=== PATIENT | male | born 1985 | race Caucasian/White ===

== ENCOUNTER 2019-10-01 14:05 | Emergency (ER) | payer BC, MEDICAID, SELFPAY ==
[2019-10-01 14:49] VITALS: BP 108/65; PULSE 85; RESP 19; TEMP 36.8; O2SAT 100; BMI 35.2
--- NOTE | 2019-10-01 15:13 | HMH.EDUTC ---
[facility] [place] Clinical Impression: Encounter for laboratory testing for COVID-19 virus URI (upper respiratory infection) Qualifiers: URI type: unspecified URI Qualified Code(s): J06.9 - Acute upper respiratory infection, unspecified Disposition: Home, Self-Care Condition on Discharge: Good Instructions: Sore Throat, Preventing the Spread of Coronavirus Discharge Instructions, Azithromycin Additional Instructions: *Monitor Temp, Over the counter Motrin or Tylenol as directed/as needed Tylenol every 4 hours and Motrin every 6 hours (as long as your family doctor has told you that you can take it) for fever or pain. and straight to ER if unable to lower temp less than 101.0 after medication given *Warm salt water gargles may help to soothe the throat *Throat Lozenges *Warm fluids like tea with honey may help to soothe the throat *Sleep elevated *Humidifier/Vaporizer You was given handout with instructions for Self Quarantine while you await your COVID19 test results and Self Isolation if the test results are positive Make sure to follow them Closely to help prevent the spread of COVID Call back to the [facility] on Thursday to see if your COVID test is back and the results No work until you have a negative COVID test Follow up IMMEDIATELY for new or worsening symptoms or no Noticeable improvement over the next 48-72 hours. 911 for difficulty breathing or swallowing Prescriptions: Albuterol Sulfate [Proventil-HFA 90mcg/puff Inh] 1 - 2 puffs IH Q4HP PRN #1 inh PRN Reason: Shortness Of Breath Prescription Printed Azithromycin [Z-Shadi 250mg Tab] 250 mg PO DIRECTED #6 tab Prescription Printed Referrals: Viry Beltrán [Primary Care Provider] - As needed Forms: Work/School Release Medical Decision Making - Bennie Inquiry Pt receiving controlled substance: No Bennie was queried for this patient: No Vital Signs: 10/01/19 14:49 Temperature 98.2 F Temperature Source Oral Pulse Rate [Right Brachial] 85 Respiratory Rate 19 Blood Pressure [Right Arm] 108/65 L Blood Pressure Mean [Right Arm] 79 Blood Pressure Source [Right Arm] Automatic Cuff Blood Pressure Position [Right Arm] Sitting 02 Sat by Pulse Oximetry 100 Oxygen Delivery Method Room Air Orders (Tests/Meds): ORDERS Category Date Time Status SARS-CoV-2, [place] ([place]) Stat Lab 10/01/19 14:45 [place] [facility] [place] - General Stated complaint: WANTS COVID TEST Time Seen by Provider: 10/01/19 15:13 Mode of Arrival: Ambulatory Source of Information: Patient Limitations: No Limitations Description of Symptoms (Recalled from Triage Doc. by RN): covid-19 testing, dizziness, chest congestion, exposure to covid positive person HEENT Symptoms (Recalled from RN notes): Yes Resp Symptoms (Recalled from RN notes): Yes Skin Symptoms (Recalled from RN notes): No MS Symptoms (Recalled from RN notes): No Functional Status (Recalled from RN notes): none - History of Present Illness Provider Complaint: Patient states that he was around someone that was positive for COVID 3 times States that this week he has been feeling tired and achy all over, having cough, sinus pain and pressure, sore throat and nasal congestion and over all not feeling well States that had a couple eppisodes of vomiting and nausea. States that he wanted to get checked for COVID - Related Data Home Medications Medication Instructions Recorded Confirmed Metoprolol Tartrate [Lopressor 25 mg PO DAILY 10/01/19 10/01/19 25mg tablet] Omeprazole [Omeprazole 20mg 100 mg PO DAILY 10/01/19 10/01/19 Capsule] lamoTRIgine [Lamotrigine] 100 mg PO DAILY 10/01/19 10/01/19 lisinopriL [Lisinopril 40mg Tablet] 40 mg PO DAILY 10/01/19 10/01/19 Previous Rx's Medication Instructions Recorded Albuterol Sulfate [Proventil-HFA 1 - 2 puffs IH Q4HP PRN #1 inh 10/01/19 90mcg/puff Inh] Azithromycin [Z-Shadi 250mg Tab] 250 mg PO DIRECTED #6 tab 10/01/19 Allergies Allergy/AdvReac Type
[2019-10-01 15:37] VITALS: BP 108/65; PULSE 85; RESP 19; TEMP 36.8; O2SAT 100
[2019-10-02 16:39] LABS: Covid-19 Nasal PCR Sendout UK Not Detected
== END 2019-10-01 15:37 | disposition home or self-care (01) ==
PROVIDERS: Emergency Provider Nurse Practitioner; PCP Family Medicine
DX: Z20.828 Contact with and (suspected) exposure to other viral communicable diseases (principal); R42 Dizziness and giddiness; R05 Cough; F17.210 Nicotine dependence, cigarettes, uncomplicated
CPT/HCPCS: 96372; 99202; U0003

== ENCOUNTER → 2022-02-25 10:00 | Outpatient (CLI) | payer BC, SELFPAY ==
[2022-02-25 14:26] LABS: Basophils % 0.6 % (0.1-2.0); Eosinophils # 0.1 K/mm3 (0.0-0.4); Eosinophils % 1.2 % (0.1-12.0); Hematocrit 44.2 % (42.0-52.0); Hemoglobin 14.9 g/dL (14.1-18.0); Lymphocytes # 1.1 K/mm3 (0.7-4.5); Lymphocytes % 20.5 % (10-50); Mean Corpuscular HGB Conc 33.7 g/dL (31.8-35.4); Mean Platelet Volume 10.1 fl (7.4-10.4); Monocytes # 0.3 K/mm3 (0.1-1.0); Monocytes % 5.4 % (1.7-9.3); Neutrophils # 3.8 K/mm3 (1.8-7.8); Neutrophils % 72.3 % (37.0-80.0); Platelet Count 208 K/mm3 (142-424); Red Cell Distribution Width 14.1 % (11.5-17.5); White Blood Count 5.2 K/mm3 (4.8-10.8)
[2022-02-25 14:30] LABS: Alanine Aminotransferase 22 U/L (12-78); Albumin Level 4.4 g/dl (3.5-5.0); Albumin/Globulin Ratio 1.8 (1.1-1.8); Alkaline Phosphatase 142 U/L (38-126); Anion Gap 13.4 mEq/L (5-15); Aspartate Amino Transferase 23 U/L (17-59); Bilirubin,Total 0.3 mg/dl (0.2-1.3); Blood Urea Nitrogen 14 mg/dl (9-20); Calcium 9.4 mg/dl (8.4-10.2); Carbon Dioxide 27 mmol/L (22.0-30.0); Chloride 106 mmol/L (98-107); Chol/HDL Ratio 7.7 (1-3.5); Cholesterol 184 mg/dl (140-200); Estimated Glomerular Filt Rate 95 ml/min (>60); GFR (African American) 116 ML/MIN (>60); Globulin 2.4 g/dL (1.3-3.2); Glucose 109 mg/dl (74-100); HDL Cholesterol 24 mg/dl (40-60); Potassium 4.4 mmoL/L (3.5-5.1); Sodium 142 mmol/L (136-145); Total Protein,Serum 6.8 g/dl (6.3-8.2); Triglycerides 375 mg/dl (30-150); VLDL Cholesterol 75 mg/dL (0-40)
[2022-02-25 14:41] LABS: Direct LDL Cholesterol 95.36 mg/dL (100-129)
[2022-02-25 15:01] LABS: 25-OH Vitamin D, Total 36.2 ng/mL (30-100); Thyroid Stimulating Hormone 0.63 uIU/mL (0.465-4.68)
== END ==
PROVIDERS: PCP Emergency Medicine; Visit Provider Emergency Medicine
DX: I10 Essential (primary) hypertension (principal); E66.9 Obesity, unspecified; Z68.41 Body mass index [BMI] 40.0-44.9, adult; Z72.0 Tobacco use
CPT/HCPCS: 80053; 80061; 82306; 84439; 84443; 85025

== ENCOUNTER → 2022-03-06 10:45 | Outpatient (CLI) | payer BC, SELFPAY ==
--- NOTE | 2022-03-06 10:50 | CA_ITS ---
FINAL REPORT TECHNIQUE: Grayscale, color Doppler and duplex Doppler ultrasound of the kidneys, aorta and renal arteries was performed. Multiple velocities were measured. CLINICAL HISTORY: HTN,SMOKER FINDINGS: Aorta velocity: 179 cm/sec Right kidney: 11.2 cm. No evidence of hydronephrosis or mass. Right intrarenal RI: .56 Right renal artery velocity: 184 cm/sec. Right RAR (Renal artery-Aortic Ratio): 1.03 Left Kidney: 11.9 cm. No evidence of hydronephrosis or mass. Left intrarenal RI: .61 Left renal artery velocity: 165 cm/sec. Left RAR (Renal Artery-Aortic Ratio): 0.92 IMPRESSION: There is less than 60% renal artery stenosis on the right. There is no evidence of stenosis on the left. CT angiogram or postcontrast MR angiogram would be more sensitive for evaluation of possible renal artery stenosis. Reviewed, Interpreted and Dictated by Khurram Crowe III, MD Transcribed by Marisela Parr Authenticated and [facility]
== END ==
PROVIDERS: PCP Emergency Medicine; Visit Provider Emergency Medicine
DX: I10 Essential (primary) hypertension (principal)
CPT/HCPCS: 93976

== ENCOUNTER → 2022-03-14 10:25 | Outpatient (CLI) | payer BC, SELFPAY ==
[2022-03-14 12:16] LABS: Anion Gap 15.2 mEq/L (5-15); Blood Urea Nitrogen 30 mg/dl (9-20); Calcium 9.1 mg/dl (8.4-10.2); Carbon Dioxide 24 mmol/L (22.0-30.0); Chloride 108 mmol/L (98-107); Chol/HDL Ratio 9.2 (1-3.5); Cholesterol 229 mg/dl (140-200); Estimated Glomerular Filt Rate 85 ml/min (>60); GFR (African American) 102 ML/MIN (>60); Glucose 106 mg/dl (74-100); HDL Cholesterol 25 mg/dl (40-60); Potassium 4.2 mmoL/L (3.5-5.1); Sodium 143 mmol/L (136-145); Triglycerides 342 mg/dl (30-150); VLDL Cholesterol 68 mg/dL (0-40)
[2022-03-14 12:22] LABS: Hemoglobin A1C 4.9 % (4.0-6.0)
== END ==
PROVIDERS: PCP Emergency Medicine; Visit Provider Emergency Medicine
DX: E78.2 Mixed hyperlipidemia (principal); R73.09 Other abnormal glucose; D72.824 Basophilia; R94.4 Abnormal results of kidney function studies
CPT/HCPCS: 36415; 80048; 80061; 83036

== ENCOUNTER → 2022-03-26 13:20 | Outpatient (CLI) | payer SELFPAY ==
--- NOTE | 2022-03-26 13:21 | CT_ITS ---
FINAL REPORT TECHNIQUE: Thin section axial images were obtained through the heart and coronary arteries per CT coronary calcium score protocol. This study was performed with techniques to keep radiation doses as low as reasonably achievable (ALARA). Individualized dose reduction techniques using automated exposure control or adjustment of mA and/or kV according to the patient's size were employed. CLINICAL HISTORY: eval for CAD, htn, family hx heart disease. FINDINGS: On the axial images, no calcification is identified. This gives a coronary artery calcium score of 0 based on the Agatston scale. This coronary calcium score places the patient within the 0 percentile based on age and gender. The heart is normal in size. There is no pleural or pericardial effusion. Limited evaluation of the lungs reveal a noncalcified nodule in the inferior right lung measuring 11 mm. Finding is best seen on image 15. IMPRESSION: Coronary artery calcium score of 0 places patient in the 0 percentile based on age and gender. Noncalcified nodule as above, given the patient's age this is likely a noncalcified granuloma. Reviewed, Interpreted and Dictated by Malorie Villarreal MD Transcribed by Marisela Parr Authenticated and [facility]
== END ==
PROVIDERS: PCP Emergency Medicine; Visit Provider Internal Medicine Cardiovascular Disease
DX: I70.1 Atherosclerosis of renal artery (principal); R93.429 Abnormal radiologic findings on diagnostic imaging of unspecified kidney; I10 Essential (primary) hypertension; R53.83 Other fatigue; Z72.0 Tobacco use; Z13.6 Encounter for screening for cardiovascular disorders
CPT/HCPCS: 75571

== ENCOUNTER → 2022-03-28 11:33 | Outpatient (CLI) | payer BC, SELFPAY | PROVIDERS: PCP Emergency Medicine; Visit Provider Internal Medicine Cardiovascular Disease | DX: R06.83 Snoring (principal); G47.33 Obstructive sleep apnea (adult) (pediatric); R53.83 Other fatigue; R40.0 Somnolence | CPT/HCPCS: G0399 ==

== ENCOUNTER → 2022-04-07 13:14 | Outpatient (CLI) | payer BC, SELFPAY ==
--- NOTE | 2022-04-07 13:14 | CA_ITS ---
APPROVED REPORT EXAM: Comprehensive 2D, Doppler, and color-flow Echocardiogram Automatic [employer] Machine Mechanic: ANTONIO Medley, RVS Ht: 5 ft 7 in Wt: 268lbs BSA: 2.29 BP: 136/78 mmHg Indications: HTN, Abn EKG 2D Dimensions Aortic Root 3.26 cm Left Atrium 3.66 cm LVOT 2.17 cm (M/F) 1.5-2.5 M-Mode Dimensions RVDd 2.69 cm (0.9-2.6) LA Diam 4.28 cm (1.9-4.0) LVDd 5.39 cm (3.5-5.7) Ao Diam 3.47 cm (2.0-3.7) LVDs 3.38 cm (3.5-5.7) IVSd 1.09 cm (0.6-1.1) PWd 1.04 cm (0.6-1.1) EF (Teich) 66.70% EPSs 0.36 cm FS 37.30% EDV (Teich) 140.70 mL TAPSE 1.84 (<1.7) ESV (Teich) 46.80 mL LV Diastology E Decel Time 217.00 (160-240 msec) E/A Ratio 1.66 MED E' 7.40 (< 7 cm/sec) MED A' 10.30 cm/s E'/MED E' Ratio 12.31 (>14) LAT E' 14.50 (<10 cm/sec) LAT A' 11.80 cm/s E/LAT E' Ratio 6.28 (>14) Aortic Valve LVOT Max 96.00 (70-110 cm/s) LVOT VTI 20.86 cm AoV Peak Lloyd. 131.00 (50-130 cm/s) AO Peak GR. 6.90 mmHg AO Mean GR. 3.40 (<5 mmHg) AO VTI 26.74 (18-25 cm) TANIA (VTI) 2.89 (2.5-4.5 cm2) Mitral Valve MV A Velocity 55.00 (40-130 cm/s) E/A Ratio 1.66 MV Decel. Time 217.00 (160-240 ms) MV PHT 43.00 ms Pulmonary Valve PV Peak Velocity 95.00 (50-150 cm/s) Left Ventricle Left atrium is normal size, left ventricle is normal size, estimated ejection fraction 55% with no regional wall motion abnormality, diastolic parameters are within normal range. Right Ventricle Right atrium and right ventricle are normal size and contractility. Aortic Valve Aortic valve is grossly normal there is no aortic stenosis or aortic insufficiency. Mitral Valve Mitral valve is grossly normal, there is trace mitral regurgitation. Tricuspid Valve Tricuspid valve grossly normal, there is trace tricuspid regurgitation, tricuspid regurgitation jet velocity is inadequate for calculation of the right ventricular systolic pressure. Pulmonic Valve Pulmonic valve is poorly visualized. Great Vessels Aortic root is normal size. Inferior vena cava is poorly visualized Pericardium No significant pericardial effusion noted. Conclusion 1. Normal left ventricular size preserved left ventricular systolic function, estimated ejection fraction 55% with no regional wall motion abnormality, diastolic parameters are within normal range. 2. Trace mitral and tricuspid regurgitation. 3. No significant pericardial effusion noted. 4. Inferior vena cava is poorly visualized. Electronically signed by : Julio Cesar Mei MD 04/08/2022 05:43:49
--- NOTE | 2022-04-07 13:17 | CT_ITS ---
FINAL REPORT TECHNIQUE: Axial CT images were performed through the abdomen pelvis utilizing a CTA protocol. Coronal and sagittal reformatted images were submitted. This study was performed with techniques to keep radiation doses as low as reasonably achievable (ALARA). Individualized dose reduction techniques using automated exposure control or adjustment of mA and/or kV according to the patient's size were employed. CLINICAL HISTORY: abnormal renal u/s FINDINGS: CTA: The abdominal aorta is proper caliber. The SMA, celiac axis, and BRI are patent. There is no significant stenosis or calcification. The renal arteries are patent bilaterally. The iliac arteries are patent. ABDOMEN: The lung bases are clear. The liver is normal in size and attenuation. The spleen is unremarkable. There is an 11 mm left adrenal nodule favoring an adenoma. The pancreas is unremarkable. There is a 3.2 cm area of lobular soft tissue along the inferior pole the right kidney most worrisome for renal neoplasm. No free fluid or adenopathy is identified. No findings for mechanical bowel obstruction are identified. PELVIS: The appendix is not identified. The urinary bladder is unremarkable. No free fluid, free air, abscess or adenopathy is identified. IMPRESSION: No evidence of renal artery stenosis. Lobular area of soft tissue in the inferior pole of the right kidney most worrisome for renal neoplasm. This could be further evaluated with renal mass protocol CT or MRI. Reviewed, Interpreted and Dictated by Khurram Crowe III, MD Transcribed by Agustin Jacome Authenticated and [facility]
== END ==
PROVIDERS: PCP Emergency Medicine; Visit Provider Physician Assistant
DX: I10 Essential (primary) hypertension (principal); I70.1 Atherosclerosis of renal artery; E66.9 Obesity, unspecified; Z72.0 Tobacco use; R06.83 Snoring; R40.0 Somnolence; R53.83 Other fatigue; R93.429 Abnormal radiologic findings on diagnostic imaging of unspecified kidney; Z68.41 Body mass index [BMI] 40.0-44.9, adult
CPT/HCPCS: 74174; 93306; Q9967

== ENCOUNTER → 2022-06-10 12:13 | Outpatient (CLI) | payer BC, SELFPAY ==
--- NOTE | 2022-06-10 12:43 | CT_ITS ---
FINAL REPORT TECHNIQUE: Pre- and postcontrast images of the abdomen were performed by computed tomography. This study was performed with techniques to keep radiation doses as low as reasonably achievable (ALARA). Individualized dose reduction techniques using automated exposure control or adjustment of mA and/or kV according to the patient's size were employed. CLINICAL HISTORY: questionable renal mass FINDINGS: The lung bases are clear. The liver is normal in size and attenuation. The spleen is unremarkable. The adrenals are normal. The pancreas is unremarkable. There is a lobular low-attenuation mass arising from the lower pole of the right kidney measuring 2.3 x 1.3 cm. The heterogeneous enhancement is similar to that of the adjacent normal renal cortex. There is no significant retroperitoneal adenopathy. No filling defect is seen in the right renal vein. IMPRESSION: Mass in the lower pole of the right kidney measures 2.3 x 1.7 cm highly concerning for renal cell carcinoma. Recommend urologic evaluation. Reviewed, Interpreted and Dictated by Ede Stiles MD Transcribed by Marisela Parr Authenticated and [facility]
[2022-06-10 13:34] LABS: Blood Urea Nitrogen 22 mg/dl (9-20); Estimated Glomerular Filt Rate 46 ml/min (>60); GFR (African American) 55 ML/MIN (>60)
== END ==
PROVIDERS: PCP Emergency Medicine; Visit Provider Emergency Medicine
DX: R93.429 Abnormal radiologic findings on diagnostic imaging of unspecified kidney (principal); R93.89 Abnormal findings on diagnostic imaging of other specified body structures
CPT/HCPCS: 36415; 74170; 82565; 84520; Q9967

== ENCOUNTER → 2023-02-04 16:44 | Outpatient (CLI) | payer BC, SELFPAY ==
[2023-02-04 19:15] LABS: Basophils % 0.3 % (0.1-2.0); Eosinophils # 0.1 K/mm3 (0.0-0.4); Hematocrit 38.1 % (42.0-52.0); Hemoglobin 13.3 g/dL (14.1-18.0); Lymphocytes # 1.5 K/mm3 (0.7-4.5); Lymphocytes % 14.9 % (10-50); Mean Corpuscular HGB Conc 34.9 g/dL (31.8-35.4); Mean Corpuscular Volume 91.6 fl (80-94); Mean Platelet Volume 10.1 fl (7.4-10.4); Monocytes # 0.4 K/mm3 (0.1-1.0); Monocytes % 3.9 % (1.7-9.3); Neutrophils # 8.2 K/mm3 (1.8-7.8); Neutrophils % 79.8 % (37.0-80.0); Platelet Count 309 K/mm3 (142-424); Red Blood Count 4.16 M/mm3 (4.60-6.20); Red Cell Distribution Width 13.2 % (11.5-17.5); White Blood Count 10.2 K/mm3 (4.8-10.8)
[2023-02-04 19:33] LABS: Hemoglobin A1C 5.1 % (4.0-6.0)
[2023-02-04 19:39] LABS: Alanine Aminotransferase 33 U/L (12-78); Albumin Level 4.8 g/dl (3.5-5.0); Albumin/Globulin Ratio 1.7 (1.1-1.8); Alkaline Phosphatase 116 U/L (38-126); Anion Gap 19.6 mEq/L (5-15); Aspartate Amino Transferase 29 U/L (17-59); Bilirubin,Total 0.4 mg/dl (0.2-1.3); Blood Urea Nitrogen 49 mg/dl (9-20); Calcium 8.9 mg/dl (8.4-10.2); Carbon Dioxide 22 mmol/L (22.0-30.0); Chloride 98 mmol/L (98-107); Chol/HDL Ratio 9.4 (1-3.5); Cholesterol 179 mg/dl (140-200); Estimated Glomerular Filt Rate 12 ml/min (>60); GFR (African American) 15 ML/MIN (>60); Globulin 2.9 g/dL (1.3-3.2); Glucose 94 mg/dl (74-100); HDL Cholesterol 19 mg/dl (40-60); Potassium 4.6 mmoL/L (3.5-5.1); Sodium 135 mmol/L (136-145); Total Protein,Serum 7.7 g/dl (6.3-8.2)
[2023-02-04 19:43] LABS: Triglycerides 477 mg/dl (30-150)
[2023-02-04 19:52] LABS: Direct LDL Cholesterol 73.06 mg/dL (100-129)
[2023-02-04 20:01] LABS: 25-OH Vitamin D, Total 44.3 ng/mL (30-100)
[2023-02-04 20:13] LABS: Thyroid Stimulating Hormone 0.24 uIU/mL (0.465-4.68)
== END ==
LOC: LAB.DROPOF 16:45
PROVIDERS: PCP Internal Medicine; Visit Provider Nurse Practitioner Family
DX: I10 Essential (primary) hypertension (principal); Z68.38 Body mass index [BMI] 38.0-38.9, adult; Z72.0 Tobacco use
CPT/HCPCS: 80053; 80061; 82306; 83036; 84443; 85025; 93225

== ENCOUNTER → 2023-02-06 07:58 | Outpatient (CLI) | payer BC, SELFPAY ==
[2023-02-06 10:07] LABS: Chloride 103 mmol/L (98-107); Potassium 4.7 mmoL/L (3.5-5.1); Sodium 139 mmol/L (136-145)
[2023-02-06 10:09] LABS: Blood Urea Nitrogen 53 mg/dl (9-20); Estimated Glomerular Filt Rate 17 ml/min (>60); GFR (African American) 21 ML/MIN (>60)
[2023-02-06 10:10] LABS: Alanine Aminotransferase 26 U/L (12-78); Albumin Level 4.1 g/dl (3.5-5.0); Albumin/Globulin Ratio 1.6 (1.1-1.8); Alkaline Phosphatase 99 U/L (38-126); Anion Gap 13.7 mEq/L (5-15); Aspartate Amino Transferase 21 U/L (17-59); Bilirubin,Total 0.3 mg/dl (0.2-1.3); Calcium 8.6 mg/dl (8.4-10.2); Carbon Dioxide 27 mmol/L (22.0-30.0); Globulin 2.5 g/dL (1.3-3.2); Glucose 98 mg/dl (74-100); Total Protein,Serum 6.6 g/dl (6.3-8.2)
== END ==
PROVIDERS: PCP Internal Medicine; Visit Provider Urology
DX: C64.9 Malignant neoplasm of unspecified kidney, except renal pelvis (principal)
CPT/HCPCS: 36415; 80053

== ENCOUNTER 2023-03-19 11:24 | Outpatient (CLI) | payer BC, SELFPAY ==
[2023-03-19 11:49] LABS: Amphetamine/Metha Screen,Urine Negative ng/ml (<1000); Barbiturates Screen,Urine Negative ng/ml (<200); Benzodiazepines Screen,Urine Positive ng/ml (<200); Cannabinoid Screen,Urine Positive ng/ml (<50); Cocaine Screen,Urine Negative ng/ml (<300); Methadone Screen,Urine Negative ng/ml (<300); Opiate Screen,Urine Negative ng/ml (<300); Phencyclidine Screen,Urine Negative ng/ml (<25)
[2023-03-24 06:55] LABS: Alprazolam Negative (Cutoff=100); Benzodiazepines Positive ng/mL (Cutoff=100); Clonazepam Positive (.); Clonazepam Confirm 726 ng/mL (Cutoff=100); Flurazepam Negative (Cutoff=100); Lorazepam Negative (Cutoff=100); Midazolam Negative (Cutoff=100); Temazepam Negative (Cutoff=100); Triazolam Negative (Cutoff=100)
== END 2023-03-19 23:59 ==
LOC: LAB.DROPOF 11:25
PROVIDERS: PCP Family Medicine; Visit Provider Family Medicine
DX: Z79.899 Other long term (current) drug therapy (principal)
CPT/HCPCS: 80307; 80346